=== PATIENT | female | born 1960 | race Two or more races ===

== ENCOUNTER 2018-05-13 14:34 | Outpatient (CLI) | payer OTHER | END 2018-05-13 14:49 | disposition home or self-care (01) | LOC: RAD 501 14:34 | DX: M79.651 Pain in right thigh (principal); M79.604 Pain in right leg; Z76.89 Persons encountering health services in other specified circumstances ==

== ENCOUNTER → 2018-05-20 06:19 | Outpatient (CLI) | payer OTHER ==
[~2018-05-20 06:19] MED LIST: CRESTOR10 MG PO; EXFORGE 10-3201 EACH PO; FORTAMET500 MG PO
== END | disposition home or self-care (01) ==
LOC: LAB 06:19
DX: E55.9 Vitamin D deficiency, unspecified (principal); M85.9 Disorder of bone density and structure, unspecified; D64.89 Other specified anemias; E88.89 Other specified metabolic disorders; D68.8 Other specified coagulation defects; Z22.322 Carrier or suspected carrier of Methicillin resistant Staphylococcus aureus; E13.69 Other specified diabetes mellitus with other specified complication

== ENCOUNTER 2018-05-21 08:09 | Outpatient (CLI) | payer OTHER ==
[2018-05-21] MEDS ORDERED: EXFORGE 10-3201 EACH PO (10:23)
[2018-05-21] MEDS ORDERED: FORTAMET500 MG PO (10:24)
[2018-05-21] MEDS ORDERED: CRESTOR10 MG PO (10:25)
== END 2018-05-21 08:22 | disposition home or self-care (01) ==
LOC: EKG 08:09
DX: I49.8 Other specified cardiac arrhythmias (principal)

== ENCOUNTER 2018-05-21 10:43 | Inpatient (IN) | payer OTHER ==
[~2018-05-21] VITALS: Ht 152.4 cm; Wt 78.9 kg
[2018-06-05] MEDS ORDERED: EXFORGE 10-3201 EACH PO (13:30)
== END 2018-06-25 14:15 | DRG 470 ==
LOC: SURH 06-05 11:15 → SURG 06-22 07:42 → O/R 06-22 07:42 → SURG 06-22 18:01
PROVIDERS: ADMIT Orthopaedic Surgery
PROC: 0SRC0J9 Replacement of Right Knee Joint with Synthetic Substitute, Cemented, Open Approach (ICD-10-PCS; principal; 2018-06-22 09:00)
DX: M17.11 Unilateral primary osteoarthritis, right knee (principal); D62 Acute posthemorrhagic anemia; I10 Essential (primary) hypertension; E11.9 Type 2 diabetes mellitus without complications

== ENCOUNTER 2018-06-12 06:28 | Outpatient (CLI) | payer OTHER | END 2018-06-12 06:34 | disposition home or self-care (01) | LOC: LAB 06:28 | DX: D64.89 Other specified anemias (principal); E88.89 Other specified metabolic disorders; D68.8 Other specified coagulation defects; N39.0 Urinary tract infection, site not specified; Z22.322 Carrier or suspected carrier of Methicillin resistant Staphylococcus aureus; Z76.89 Persons encountering health services in other specified circumstances; I49.8 Other specified cardiac arrhythmias ==

== ENCOUNTER 2019-06-23 12:53 | Outpatient (CLI) | payer OTHER | END 2019-06-23 13:04 | disposition home or self-care (01) | LOC: RAD 12:53 | DX: Z96.651 Presence of right artificial knee joint (principal) ==

== ENCOUNTER 2024-07-06 06:57 | Outpatient (CLI) | payer OTHER ==
[2024-07-06 08:06] LABS: BASO % 0.5 % (0.1-1.2); EOS # 0.35 (0.04-0.54); HEMATOCRIT 37.7 % (34.1-44.9); HEMOGLOBIN 11.9 g/dL (11.2-15.7); LYMPH # 1.68 (1.18-3.74); LYMPH % 28.8 % (19.3-53.1); MEAN CORPUSCULAR HEMOGLOBIN 26.4 pg (25.6-32.2); MONO # 0.43 (0.24-0.82); MONO % 7.4 % (4.7-12.5); NEUT # 3.33 (1.56-6.13); PLATELET COUNT 336 K/uL (163-369); RED CELL DISTRIBUTION WIDTH 14.8 % (11.6-14.4)
[2024-07-06 08:24] LABS: URINE APPEARANCE Cloudy; URINE BILIRRUBIN Negative (NEGATIVE); URINE BLOOD Negative; URINE COLOR Yellow; URINE GLUCOSE Negative (NEGATIVE); URINE KETONE Negative (NEGATIVE); URINE LEUKOCYTE Negative; URINE NITRATE Negative; URINE PROTEIN Negative (NEGATIVE); URINE UROBILINOGEN 0.2 E.U./dl
[2024-07-06 08:27] LABS: INR 1.04; PARTIAL THROMBOPLASTIN TIME 27.9 SECONDS (22.0-34.0); PROTHROMBIN TIME 11.3 SECONDS (9.0-11.5)
[2024-07-06 08:37] LABS: URINE BACTERIA 19.5 uL (0.0-1933); URINE EPITHELIAL CELLS 5.2 uL (0.0-38.8); URINE RBC 8.2 uL (0.0-20.8); URINE WBC 6.4 uL (0.0-23.2)
[2024-07-06 08:44] LABS: COL EPI 123 SECONDS (82-175)
[2024-07-06 09:06] LABS: ALBUMIN 3.6 gm/dL (3.4-5.0); BILIRUBIN TOTAL 0.77 mg/dL (0.3-1.2); CALCIUM 9.3 mg/dL (8.5-10.1); CREATININE SERUM 0.65 mg/dL (0.55-1.02); GFR 92.66; GLOBULINA 3.3 G/DL (2.4-3.5); POTASSIUM 4.17 mEq/L (3.5-5.1); TOTAL PROTEIN 6.9 gm/dL (6.4-8.2)
[2024-07-06 09:33] LABS: URINE CAST 0.58 uL (0.0-1.40)
[2024-07-06 09:34] LABS: URINE CRYSTALS MANY /HPF
[2024-07-06 09:36] LABS: URINE MUCUS MODERATE
== END 2024-07-06 06:58 | disposition home or self-care (01) ==
LOC: RAD 06:57 → LAB 06:57
PROVIDERS: ATTEND Orthopaedic Surgery
DX: Z76.89 Persons encountering health services in other specified circumstances (principal); D64.9 Anemia, unspecified; E88.9 Metabolic disorder, unspecified; D68.8 Other specified coagulation defects; N39.0 Urinary tract infection, site not specified; E11.8 Type 2 diabetes mellitus with unspecified complications

== ENCOUNTER 2024-07-06 08:05 | Outpatient (CLI) | payer OTHER | END 2024-07-06 08:09 | disposition home or self-care (01) | LOC: RAD 08:05 | PROVIDERS: ATTEND Orthopaedic Surgery | DX: Z76.89 Persons encountering health services in other specified circumstances (principal) ==

== ENCOUNTER 2024-07-26 11:03 | Outpatient (CLI) | payer OTHER | END 2024-07-26 11:08 | disposition home or self-care (01) | LOC: RAD 11:03 | PROVIDERS: ATTEND Orthopaedic Surgery | DX: M25.562 Pain in left knee (principal); M20.11 Hallux valgus (acquired), right foot ==

== ENCOUNTER 2024-08-19 08:42 | Outpatient (CLI) | payer OTHER | END 2024-08-19 08:48 | disposition home or self-care (01) | LOC: RAD 08:42 | PROVIDERS: ATTEND Orthopaedic Surgery | DX: M79.671 Pain in right foot (principal) ==